=== PATIENT | male | born 1960 | race Caucasian/White ===

== ENCOUNTER 2020-09-09 13:23 | Outpatient (REF) | payer MEDICAID, SELFPAY | END 2020-09-09 13:24 | disposition home or self-care (01) | LOC: HO.LAB 13:23 | PROVIDERS: Visit Provider Internal Medicine | DX: Z20.828 Contact with and (suspected) exposure to other viral communicable diseases (principal) | CPT/HCPCS: 87635 ==

== ENCOUNTER 2021-08-04 14:23 | Outpatient (REF) | payer MEDICAID, SELFPAY | END 2021-08-04 14:24 | disposition home or self-care (01) | LOC: HO.LAB 14:23 | PROVIDERS: PCP Internal Medicine; Visit Provider Internal Medicine | DX: Z20.822 Contact with and (suspected) exposure to COVID-19 (principal) | CPT/HCPCS: C9803; U0003; U0005 ==

== ENCOUNTER 2021-08-13 13:15 | Outpatient (REF) | payer MEDICAID, SELFPAY | END 2021-08-13 13:16 | disposition home or self-care (01) | LOC: HO.LAB 13:15 | PROVIDERS: Visit Provider Internal Medicine | DX: Z20.822 Contact with and (suspected) exposure to COVID-19 (principal) | CPT/HCPCS: U0003; U0005 ==

== ENCOUNTER 2021-09-03 12:54 | Outpatient (REF) | payer MEDICAID, SELFPAY | END 2021-09-03 12:55 | disposition home or self-care (01) | LOC: HO.LAB 12:54 | PROVIDERS: Visit Provider Internal Medicine | DX: Z20.822 Contact with and (suspected) exposure to COVID-19 (principal) | CPT/HCPCS: C9803; U0003; U0005 ==

== ENCOUNTER 2023-06-21 14:03 | Emergency (ER) | payer MEDICAID, SELFPAY ==
[2023-06-21 14:40] VITALS: BP 158/99; PULSE 67; RESP 16; TEMP 36.2; O2SAT 97; BMI 23.7
--- NOTE | 2023-06-21 14:40 | ED_ITS ---
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 He reports that between 11:30 and 1:00 a.m. his ?entire abdomen hurt. ? At the time of my evaluation he reports that he is completely asymptomatic He denies any abdominal pain or dizziness He denies any history abdominal surgeries or history of vertigo No other complaints or concerns at this time He notes to the triage provider that he was eating a hamburger prior to the onset of his abdominal pain and dizziness He also notes that he has been working 7 days in a row, long shifts and is concerned that may be related to his symptoms The patient states he never had any chest pain Related Data Allergies Allergy/AdvReac Type Severity Reaction Status Date / Time No Known Allergies Allergy Verified 06/21/23 14:43 [No Known Allergies*] Review of Systems Constitutional: Constitutional: Denies chills, Denies fever(s) and Denies headache(s) ENT: Denies headache(s) Cardiovascular: Cardiovascular: Denies chest pain and Denies dyspnea Respiratory: Respiratory: Denies cough and Denies dyspnea Gastrointestinal: Gastrointestinal: Denies constipation and Denies vomiting Genitourinary: Genitourinary: Denies difficulty urinating and Denies dysuria Neurologic: Denies headache(s), Denies focal weakness and Reports other (Reports dizziness) PMFSH Social History Social History Advance Directives: No Advance Directives Information Provided: No Physical Exam ED Vital Signs: Vital Signs - 24 hr 06/21/23 14:40 Temperature 97.1 F Pulse Rate 67 Respiratory Rate 16 Blood Pressure 158/99 H Pulse Oximetry 97 Oxygen Delivery Method Room Air BMI result Body Mass Index 23.7 Const General: healthy appearing, comfortable, no acute distress, alert and awake Nutritional Appearance: well nourished Orientation/consciousness: patient oriented x3 HENMT Head: Yes normocephalic and Yes atraumatic Eyes Eyelids: Yes eyelids normal Conjunctivae: conjunctivae normal Sclerae: sclerae normal Corneas: corneas normal Pupils: Equal, round and reactive pupils present EOM: EOMs intact bilaterally Neck Neck: Yes full ROM Resp Effort & Inspection: normal respiratory effort, able to speak in complete sentences and not labored GI Inspection: No distended Palpation (GI): Soft to palpation, not firm, nontender, no guarding and not rigid Skin General skin exam: no rashes or lesions noted and elasticity normal Neuro General: patient oriented x3 Cranial nerves: Yes Equal, round and reactive pupils present and Yes Bilaterally intact EOM present Cognition (Neuro): normal cognition Extrem Other: Moving all extremities well without any obvious deformities Course Course Course Narrative: RME performed by Smitha Madrigal PA-C. Patient is a 62 year old assigned male at presenting to the emergency department with abdominal pain and dizziness. Labs ordered. Patient placed back in the waiting room pending room availability and results. Medical Decision Making Medical Decision Making [facility] Narrative: 62-year-old male presents for evaluation of multiple complaints. His symptoms resolved prior to my evaluation. I reviewed his labs that were reassuring. He had a mild elevation of his bilirubin to 1.3 though had no right upper quadrant tenderness on exam. Denies any current abdominal pain and was not nauseous. The patient was able to stand without any difficulty and was not able to produce any dizziness. Will discharge the patient to follow-up with PCP Lab Data [facility] Lab Attestation statement: I reviewed the patient's lab results. No significant leukocytosis. Patient has a mild anemia with hemoglobin of 13.2 and hematocrit 41.6. This is just barely below his baseline from 3 years ago. Normal platelet count. Sodium potassium normal limits, chloride slightly elevated to 111. CO2 normal at 24. Very slight increase of BUN to 19 and a normal creatinine of 1.15. Normal glucose of 86 06/21/23 15:01 06/21/23 15:02 Labs: Lab Results 06/21/23 06/21/23 06/21/23 Range/Units 15:01 15:01 15:02 WBC 6.5 (4.8-10.8) X10*3/uL RBC 5.02 (4.60-5.80) X10*6/uL Hgb 13.2 L (14.0-18.0) g/dl Hct 41.6 L (42.0-52.0) % MCV 82.9 (80.0-98.0) fL MCH 26.3 L (27.0-33.0) pg MCHC 31.7 (31.0-36.0) g/dl RDW 14.0 (11.0-16.0) % Plt Count 179 (160-400) X10*3/uL MPV 11.2 (9.4-12.4) fL Immature Gran % (Auto) 0.3 (0.0-0.4) % Neut % (Auto) 72.0 (45-73) % Lymph % (Auto) 16.2 L (20-40) % [place] % (Auto) 7.4 (2-11) % Eos % (Auto) 3.2 (0-4) % Baso % (Auto) 0.9 (0-2) % Lymph # (Auto) 1.1 L (1.2-4.9) X10*3/uL [place] # (Auto) 0.5 (0.1-1.2) X10*3/uL Eos # (Auto) 0.2 (0.0-0.4) X10*3/uL Baso # (Auto) 0.1 (0.0-0.2) X10*3/uL Abs Immat Gran (auto) 0.02 (0.00-0.03) X10*3/uL Absolute Neuts (auto) 4.7 (2.0-8.3) x10*3/uL Absolute Nucleated RBC 0.000 (0.0-0.012) X10*3/uL Nucleated RBC % (auto) 0.0 (0.0-0.2) /100WBC Sodium 142 (135-145) mmol/L Potassium 4.1 (3.3-5.1) mmol/L Chloride 111 H (96-108) mmol/L Carbon Dioxide 24 (22-29) mmol/L Anion Gap 11 L (12-20) BUN 19 H (9-16) mg/dL Creatinine 1.15 (0.5-1.4) mg/dL Estim Creat Clear Calc 71.8 Estimated GFR > 60 Random Glucose 86 (60-115) mg/dL Calcium 9.6 (8.4-10.2) mg/dL Magnesium 2.3 (1.6-2.6) mg/dL Total Bilirubin 1.3 H (0.0-1.0) mg/dL AST 20 (5-37) U/L ALT 16 (0-40) U/L Alkaline Phosphatase 70 (39-117) U/L Total Protein 7.5 (6.5-8.0) g/dL Albumin 4.3 (3.5-5.0) g/dL COVID-19 (TK) Negative (Negative) COVID-19 Clin Com See Note Tests considered The following testing was considered but not selected: CT imaging of the brain, abdomen however the patient's physical exam is benign a nd he is currently asymptomatic Discharge Plan Discharge Clinical Impression: Abdominal pain, Dizziness Patient Disposition: Home, Self-Care Instructions: Abdominal Pain (ED), Dizziness (ED) Additional Instructions: Your workup in the emergency department today was reassuring. Follow-up with your primary doctor if your symptoms reoccur May return to the ER if you have new or worsening symptoms Stand Alone Forms: Work/School Release
[2023-06-21 15:07] LABS: MANUAL DIFF FLAG NO
[2023-06-21 15:09] LABS: Basophils Absolute Auto 0.1 X10*3/uL (0.0-0.2); Basophils Percent Auto 0.9 % (0-2); Eosinophils Absolute Auto 0.2 X10*3/uL (0.0-0.4); Eosinophils Percent Auto 3.2 % (0-4); Hematocrit 41.6 % (42.0-52.0); Hemoglobin 13.2 g/dl (14.0-18.0); Imm Gran Abs Auto 0.02 X10*3/uL (0.00-0.03); Imm Gran Pct Auto 0.3 % (0.0-0.4); Lymphocytes Absolute Auto 1.1 X10*3/uL (1.2-4.9); Lymphocytes Percent Auto 16.2 % (20-40); Mean Corpuscular HGB Conc 31.7 g/dl (31.0-36.0); Mean Corpuscular Hemoglobin 26.3 pg (27.0-33.0); Mean Corpuscular Volume 82.9 fL (80.0-98.0); Mean Platelet Volume 11.2 fL (9.4-12.4); Monocytes Absolute Auto 0.5 X10*3/uL (0.1-1.2); Monocytes Percent Auto 7.4 % (2-11); Neutrophils Absolute Auto 4.7 x10*3/uL (2.0-8.3); Platelet Count 179 X10*3/uL (160-400); Red Blood Count 5.02 X10*6/uL (4.60-5.80); White Blood Count 6.5 X10*3/uL (4.8-10.8)
[2023-06-21 15:27] LABS: Alanine Aminotransferase 16 U/L (0-40); Albumin Level 4.3 g/dL (3.5-5.0); Alkaline Phosphatase 70 U/L (39-117); Anion Gap 11 (12-20); Aspartate Amino Transferase 20 U/L (5-37); Bilirubin Total 1.3 mg/dL (0.0-1.0); Blood Urea Nitrogen 19 mg/dL (9-16); Calcium 9.6 mg/dL (8.4-10.2); Carbon Dioxide 24 mmol/L (22-29); Chloride 111 mmol/L (96-108); Creatinine Clr Calc Pharmacy 71.8; Estimated Glomerular Filt Rate > 60; Glucose Random 86 mg/dL (60-115); Magnesium 2.3 mg/dL (1.6-2.6); Potassium 4.1 mmol/L (3.3-5.1); Sodium 142 mmol/L (135-145); Total Protein 7.5 g/dL (6.5-8.0)
[2023-06-21 20:26] LABS: COVID-19 Test Negative (Negative); IDNOW Serial# 6674DD1D
[2023-06-21 21:13] VITALS: BP 134/78; PULSE 69; RESP 16; TEMP 36.6; O2SAT 98
== END 2023-06-21 21:16 | disposition home or self-care (01) ==
PROVIDERS: Physician Assistant Medical; Emergency Provider Internal Medicine; PCP Internal Medicine
DX: R10.9 Unspecified abdominal pain (principal); R42 Dizziness and giddiness; Z20.822 Contact with and (suspected) exposure to COVID-19
CPT/HCPCS: 80053; 83735; 85025; 87635; 99283; 99284